=== PATIENT | male | born 1980 | race Caucasian/White ===

== ENCOUNTER 2022-01-31 10:23 | Emergency (ER) | payer MEDICAID ==
[~2022-01-31] VITALS: Ht 180.3 cm; Wt 100.0 kg
[2022-01-31] MEDS ORDERED: TETR-55 PO (10:42)
[2022-01-31] MEDS ORDERED: IBUP-1653 PO (10:42)
[2022-01-31] MEDS ORDERED: CLINDAMYCIN 900 MG in DEXTROSE 5% WATER 50 ML IV ONE ×2 (10:45→17:00)
[2022-01-31] MEDS ORDERED: ONDANSETRON HCL 4MG/2ML INJ IV STA ×2 (10:45→13:22)
[2022-01-31] MEDS ORDERED: MORPHINE SULFATE 4 MG/ML CPJ (NOT FOR IM USE) IV STA ×2 (10:45→13:22)
[2022-01-31] MEDS ORDERED: SODIUM CHLORIDE 0.9% 1000ML BAG (SEPSIS BOLUS) IV ONE (10:45)
[2022-01-31] MEDS ORDERED: PIPERACILLIN/TAZ 3.375G PREMIX 50 ML IV ONE ×2 (10:45→18:00)
[2022-01-31] MEDS ORDERED: CLINDAMYCIN 900 MG PREMIX 50 ML IV NR (11:00)
[2022-01-31 11:42] LABS: CHLORIDE 106 mEq/L (98-107)
[2022-01-31 11:44] LABS: PROTHROMBIN TIME 10.4 sec (9.6-11.0)
[2022-01-31] MEDS ORDERED: IOHEXOL-300 100 ML BOTTLE ONE (12:16)
[2022-01-31 14:57] LABS: BASOPHILS % 0.6 % (0.0-2.0); HEMATOCRIT. 37.2 % (42.0-52.0); MEAN CORPUSCULAR HEMOGLOBIN 28.2 pg (28.0-32.0); MEAN PLATELET VOLUME 9.2 fl (7.4-10.4); MONOCYTES % 9.2 % (2.0-8.0); NEUTROPHILS % 77.2 % (40.0-76.0); PLATELET 166 x1000/uL (130-400); RED BLOOD CELL COUNT 4.27 mill/uL (4.7-6.1)
[2022-01-31] MEDS ORDERED: KETOROLAC 30MG/ML VIAL IV ONE (15:00)
[2022-01-31] MEDS ORDERED: MORPHINE SULFATE 4 MG/ML CPJ (NOT FOR IM USE) IV ONE (19:45)
[2022-01-31] MEDS ORDERED: KETOROLAC 15MG/ML VIAL IV ONE (23:15)
[2022-02-01] MEDS ORDERED: HYDROCODONE/ACETAMINOPHEN 5/325MG TABLET PO ONE (06:45)
[2022-02-01] MEDS ORDERED: AMOX1TAB16 MT (11:17)
[2022-02-01 11:45] VITALS: BP 128/80
== END 2022-02-01 12:00 | disposition left against medical advice (07) ==
LOC: ER 10:23 → CANBEDREQ 02-01 14:17
DX: L02.01 Cutaneous abscess of face (principal); Z20.822 Contact with and (suspected) exposure to COVID-19
CPT/HCPCS: 36415; 70487; 80053; 85025; 85610; 87426; 96365; 96367; 96368; 96375; 96376; 99285; C9803; J1885; J2270; J2405; J2543; J3490; J7030; J7060; Q9967